=== PATIENT | male | born 1970 | race Caucasian/White ===

== ENCOUNTER 2024-12-04 19:14 | Emergency (ER) | payer OTHER, SELFPAY ==
--- OUTSIDE RECORDS SUMMARY | 2024-10-25 03:57 | XMS_ITS ---
Author Organization 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 Faxed to Dr. Cancino in [place]. Referral Priority Routine REASON FOR VISIT Lab(s) Medications Medication SIG (Take, Route, Frequency, Duration) Notes Start Date End Date Status Fenofibrate 160 MG Tablet 1 tablet Orall y Once a day; Duration: 30 days Active Social History Sex Assigned At : Social History Observation Description Sex Assigned At Male Problems Problem Type SNOMED Code ICD Code Onset Dates Problem Status W/U Status Risk Notes Problem Hypertriglyceridemia (995587075) Hypertriglyceridemia (E78.1) Active confirmed Encounters Encounter Location Date Provider Diagnosis [facility] [address] [place] [address] 10/25/2024 Loreta Isabel Type 2 diabetes oliver itus without complication, without long-term current use of insulin E11.9 and Hypertriglyceridemia E78.1 Assessments Encounter Date Diagnosis (ICD Code) Assessment Notes Treatment Notes Treatment Clinical Notes Section Notes 10/25/2024 Type 2 diabetes oliver itus without complication, without long-term current use of insulin (ICD-10 - E11.9) 10/25/2024 Hypertriglyceridemia (ICD-10 - E78.1) Plan Of Treatment Medication Medication Name Sig Start Date Stop Date Notes Fenofibrate 160 MG Tablet 1 tablet Orall y Once a day; Duration: 30 days Referrals Referral Date Details 10/25/2024 10/25/2024, Hypertri glyceridemia -very high cholesterol/triglycerides, Hugh Cancino Next Appt Details Provider Name:Loreta Cardenas Morales , 01/17/2025 10:00:00 AM, [address] [place], [address], Consultation Request Notes Referral Date Referring Provider Referred Provider Not es 10/25/2024 Loreta Isabel, Hugh Hypertriglyc eridemia -very high cholesterol/triglycerides Progress Notes * Daren HAMILTONDOB:1970 (54 yo M)Acc No.[id number]:10/25/2024 Patient: Daren LARRY :1970 A ge:54 Y S ex:Male Phone: Address:[address] [place] [address], [place] [address] * Refills Refill Fenofibrate Tablet, 160 MG, Orally, 30 Tablet, 1 tablet, Once a day, 30 days, Refills=3 Subjective: * Chief Complaints: * L ab(s) * Medical History: * Surgical History: * Hospitalization/Major Diagno stic Procedure: * Medications: Objective: * Vitals: * Physical Examination: Assessment: * Assessment: 1. T ype 2 diabetes mellitus without complication, without long-term current use of insulin - E11.9 2 . H ypertriglyceridemia - E78.1 Plan: * Treatment: 2. H ypertriglyceridemia Referral To:Cardiology Reason:Hypertriglyceridemia -very high cholesterol/triglycerides * Procedure Codes: * true * Date: Generated for Brianai ng/Faraúlg/eTransmitting on: 0 12/04/2024 09:29 PM EDT
[2024-12-04 19:28] VITALS: BP 153/84; PULSE 107; RESP 18; TEMP 36.6; O2SAT 96; BMI 46.1
--- OUTSIDE RECORDS SUMMARY | 2024-12-04 20:30 | XMS_ITS | Patient Health Record ---
Author Organization [facility] Address [address] [place] [address] Care Team Providers Care Hot Roller Name Role Phone Loreta Isabel Primary Care Provider Elizabeth, Primitivo Unavailable [phone] Shara Gupta Unavailable [phone] Allergies Allergen (clinical drug ingredient) Drug/Non Drug Allergy documented on EMR Reaction Allergy Type Onset Date Status Penicillin rash Drug Allergy Active Results Component Value Reference Range Flag Notes Hgb A1c with MBG Estimation Reviewed date:07/16/2024 10:41:20 AM Interpretation:9.9 Performing Lab: Notes/Report: 9.9 Hemoglobin A1c 9.9 Mean Bld Glu Estim. 237 Hgb A1c with MBG Estimation Reviewed date:10/15/2024 10:18:03 AM Interpretation:10.5 Performing Lab: Notes/Report: 10.5 Hemoglobin A1c 10.5 Mean Bld Glu Estim. 255 Hgb A1c with MBG Estimation Reviewed date:04/16/2024 11:14:06 AM Interpretation:10.1 Performing Lab: Notes/Report: 10.1 Hemoglobin A1c 10.1 Mean Bld Glu Estim. 243 *MRSA Culture/Susceptibility Reviewed date:04/17/2024 03:18:45 PM Interpretation:Negative Performing Lab:[facility], [address] [place] [address], Phone - [phone], Director - Ian Notes/Report: MRSA Screening Culture Negative *CBC With Differential/Plate let Reviewed date:10/26/2024 09:43:27 AM Interpretation:Abnormal Performing Lab:[facility], [address] [place] [address], Phone - [phone], Director - MDWillard Notes/Report: WBC 7.1 3.4-10.8 x10E3/uL RBC 5.14 4.14-5.80 x10E6/uL Hemoglobin 14.1 13.0-17.7 g/dL Hematocrit 46.1 37.5-51.0 % MCV 90 79-97 fL MCH 27.4 26.6-33.0 pg MCHC 30.6 31.5-35.7 g/dL L RDW 16.0 11.6-15.4 % H Platelets 295 150-450 x10E3/uL Neutrophils 70 Not Estab. % Lymphs 19 Not Estab. % Monocytes 7 Not Estab. % Eos 3 Not Estab. % Basos 1 Not Estab. % Neutrophils (Absolute) 5.0 1.4-7.0 x10E3/uL Lymphs (Absolute) 1.3 0.7-3.1 x10E3/uL Monocytes(Absolute) 0.5 0.1-0.9 x10E3/uL Eos (Absolute) 0.2 0.0-0.4 x10E3/uL Baso (Absolute) 0.0 0.0-0.2 x10E3/uL Immature Granulocytes 0 Not Estab. % Immature Grans (Abs) 0.0 0.0-0.1 x10E3/uL *Anaerobic and Aerobic Cultu re Reviewed date:01/18/2024 01:11:27 PM Interpretation: Performing Lab:[facility], [address] [place] [address], Phone - [phone], Director - Ian Notes/Report: Anaerobic Culture Final report Aerobic Culture Final report A Result 1 No anaerobes recovered. Result 1 Methicillin - resistant Staphylococcus aureus A Based on resistance to oxacillin this isolate would be resistant to all currently available beta-lactam antimicrobial agents, with the exception of the newer cephalosporins with anti-MRSA activity, such as Ceftaroline Heavy growth Result 2 Beta hemolytic Streptococcus, group B A Heavy growth Penicillin and ampicillin are drugs of choice for treatment of beta-hemolytic streptococcal infections. Susceptibility testing of penicillins and other beta-lactam agents approved by the FDA for treatment of beta-hemolytic streptococcal infections need not be performed routinely because nonsusceptible isolates are extremely rare in any beta-hemolytic streptococcus and have not been reported for Streptococcus pyogenes (group A). (CLSI) Result 3 Pseudomonas fluorescens A Moderate growth Result 4 Not applicable Antimicrobial Susceptibility S = Susceptible; I = Intermediate; R = Resistant P = Positive; N = Negative MICS are expressed in micrograms per mL Antibiotic RSLT#1 RSLT#2 RSLT#3 RSLT#4 Amikacin S<=2 Cefepime S =2 Cefotaxime I =32 Ceftazidime S =4 Ceftriaxone I =16 Ciprofloxacin S<=0.5 S<=0.25 Clindamycin S<=0.25 Erythromycin S<=0.25 Gentamicin S<=0.5 S<=1 Imipenem S<=1 Levofloxacin S =0.25 Linezolid S =2 Oxacillin R>=4 Penicillin R>=0.5 Piperacillin S =16 Rifampin S<=0.5 Tetracycline S<=1 S =4 Ticarcillin R>=128 Tobramycin S<=1 Trimethoprim/Sulfa S<=10 Vancomycin S<=0.5 *Testosterone,Free and Total Reviewed date:04/18/2024 03:29:47 PM Interpretation:Abnormal [facility]forming [facility], [address] [place] [address], Phone - [phone], Director - Ian Notes/Report: Testosterone 106 264-916 ng/dL L Adult male reference interval is based on a population of healthy nonobese males (BMI <30) between 19 and 39 years old. Bia, et.al. JCEM 2017,102;7035-3771. PMID: 47190531. Free Testosterone(Direct) 4.4 7.2-24.0 pg/mL L *Microalb/Creat Ratio, Rando m Urine Reviewed date:10/26/2024 09:43:27 AM Interpretation:Normal Performing Lab:[facility], [address] [place] [address], Phone - [phone], Director - Ian Notes/Report: Creatinine, Urine 156.1 Not Estab. mg/dL Albumin, Urine 21.6 Not Estab. ug/mL Alb/Creat Ratio 14 0-29 mg/g creat Normal: 0 - 29 Moderately increased: 30 - 300 Severely increased: >300 *TSH+Free T4 Reviewed date:10/26/2024 09:43:27 AM Interpretation:Normal Performing Lab:[facility], [facility], Phone - [phone], Director - Ian Notes/Report: TSH 0.686 0.450-4.500 uIU/mL T4,Free(Direct) 1.17 0.82-1.77 ng/dL *Lipid Panel Reviewed date:10/26/2024 09:43:27 AM Interpretation:Abnormal Performing Lab:[facility], [address] [facility], Phone - [phone], Director - Ian Notes/Report: Cholesterol, Total 230 100-199 mg/dL H Triglycerides 991 0-149 mg/dL HH Results confirmed on dilution. HDL Cholesterol 23 >39 mg/dL L VLDL Cholesterol Marvin The calculation for the VLDL cholesterol is not valid when 5-40 mg/dL A triglyceride level i s >800 mg/dL. LDL Chol Calc ([facility]) Triglyceride result indicated is too high for an accurate LDL 0-99 mg/dL A cholesterol estimation. LDL Calc Comment: In the absence of th e LDL-c value, if the Total Cholesterol (TC) is >260 mg/dL for those <16 years old or >290 for those >/=16 years old, consider evaluating for Familial Hypercholesterolemia( FH) if clinically indicated. If the TC is below these limits, the probability of FH cannot be determined. *Comp. Metabolic Panel (14) Reviewed date:10/26/2024 09:43:27 AM Interpretation:Normal Performing Lab:[facility], [address] [facility], Phone - [phone], Director - Ian Notes/Report: Glucose 351 70-99 mg/dL H BUN 18 6-24 mg/dL Creatinine 0.79 0.76-1.27 mg/dL eGFR 107 >59 mL/min/1.73 BUN/Creatinine Ratio 23 9-20 H Sodium 133 134-144 mmol/L L Potassium 4.2 3.5-5.2 mmol/L Chloride 95 96-106 mmol/L L Carbon Dioxide, Total 21 20-29 mmol/L Calcium 9.3 8.7-10.2 mg/dL Protein, Total 7.4 6.0-8.5 g/dL Albumin 4.2 3.8-4.9 g/dL Globulin, Total 3.2 1.5-4.5 g/dL Bilirubin, Total 0.3 0.0-1.2 mg/dL Alkaline Phosphatase 139 44-121 IU/L H AST (SGOT) 22 0-40 IU/L ALT (SGPT) 38 0-44 IU/L Venous Doppler Study (Lower Left)(90659) Reviewed date:01/18/2024 01:11:27 PM Interpretation:Normal Performing Lab: Notes/Report: Normal Blood Sugar Reviewed date:03/30/2024 11:15:26 AM Interpretation:260 Performing Lab: Notes/Report: 260 Blood Sugar 260 Blood Sugar Reviewed date:02/02/2024 02:36:32 PM Interpretation:High Performing Lab: Notes/Report: High Blood Sugar 372 Diabetic foot exam Reviewed date:10/16/2024 01:59:46 PM Interpretation: Performing Lab: Notes/Report: Reason For Referral Reason Hypertriglyceridemia -very high cholesterol/triglycerides Diagnosis 1 Hypertriglyceridemia (E78.1) Referral Organization [facility] Referring Provider First Name Loreta Referring Provider Last Name [facility] Referring Provider Speciality Physician Lamp Mechanic Referred Provider Hugh Cancino Referred Provider Specialty Cardiology General Notes Maryana Sharma 0 10/30/2024 09:38:51 AM >Pt is self pay and would need to apply for indigent care. Faxed to Dr. Cancino in [place]. Referral Priority Routine Medications Medication SIG (Take, Route, Frequency, Duration) Notes Start Date End Date Status Doxycycline Hyclate 100 MG Capsule 1 capsule Orally twice a day; Duration: 10 days 07/16/2024 Not-Kaylah g Potassium Chloride Selam ER 20 MEQ Tablet Extended Release 1 tablet with food Oral Once a day; Duration: 30 days Active traZODone HCl 50 MG Tablet 1 tablet at bedtime as needed Orally Once a day; Duration: 30 days 10/15/2024 Active Fenofibrate 160 MG Tablet 1 tablet Orally Once a day; Duration: 30 days Active Testosterone Cypionate 200 MG/ML Solution 1 mL Intramuscular every two weeks; Duration: 30 days 04/18/2024 Active Denies taking over the counter and herbal meds. Act maryellen Ozempic (2 MG/DOSE) 8 MG/3ML Solution Pen-injector 2 milligrams Subcutaneous once a week; Duration: 30 days Active Sildenafil Citrate 25 MG Tablet 1 tablet as needed Orally Once a day; Duration: 30 days Active Sulfamethoxazole-Trimeth oprim 800-160 MG Tablet 1 tablet Orally twice a day; Duration: 10 days 10/15/2024 Active Actos 45 MG Tablet 1 tablet Orally Once a day; Duration: 30 days Active Escitalopram Oxalate 10 MG Tablet 1 tablet Orally Once a day; Duration: 30 days Active Lasix 40 MG Tablet 1 tablet Orally Once a day; Duration: 30 days Active Lisinopril 20 MG Tablet 1 tablet Orally Once a day; Duration: 30 days Active Januvia 100 MG Tablet 1 tablet Orally On ce a day; Duration: 30 days Active glipiZIDE ER 10 MG Tablet Extended Release 24 Hour 1 tablet with breakfast Orally twice a day; Duration: 30 days Active Social History Tobacco Use: Social History Observation Description Date Details (start date - stop date) Former Smoker NA - NA Sex Assigned At : Social History Observation Description Sex Assigned At Male Social History Social History Social Info Question Answer Notes Tobacco Use: Are you a smoker? Status: former smoker Date questioned 10/15/2024 Are you an other tobacco user? No Date questioned 10/15/2024 Problems Problem Type SNOMED Code ICD Code Onset Dates Problem Status W/U Status Risk Notes Problem Morbid obesity (896563042) Morbid obesity due to excess calories (E66.01) 2023 Active confirmed Problem Body mass index 40+ - morbidly obese (963099785) Body mass index [BMI] 50.0-59.9, adult (Z68.43) 2023 Active confirmed Problem Mixed anxiety and depressive disorder (294520766) Depression with anxiety (F41.8) Active confirmed Problem Hypertriglyceridemia (588380115) Hypertriglyceridemia (E78.1) Active confirmed Problem Essential hypertension (39348424) Essential hypertension (I10) Active confirmed Problem Lymphedema (49131323) Lymphedema (I89.0) Active confirmed Problem Methicillin resistan t Staphylococcus aureus (764190053) MRSA (methicillin resistant Staphylococcus aureus) (A49.02) Active confirmed Problem Insomnia (878739928) Other insom jorge (G47.09) Active confirmed Problem Dribbling of urine (46370911) Post-void dribbling (N39.43) Active confirmed Problem Erectile dysfunction (disorder) (940079518) Erectile dysfunction, unspecified erectile dysfunction type (N52.9) Active confirmed Problem Hyperglycemia due to type 2 diabetes mellitus (380982221853864) Type 2 diabetes mellitus with hyperglycemia, without long-term current use of insulin (E11.65) Active confirmed Problem Type II diabetes mellitus without complication (237960398) Type 2 diabetes mellitus without complication, without long-term current use of insulin (E11.9) Active confirmed Vital Signs Heart Rate 104 /min 10/15/2024 Temperature 98.0 degrees Fahrenheit 10/15/2024 Respiratory Rate 18 /min 10/15/2024 Height-cm 182.88 cm 10/15/2024 Blood pressure diastolic 86 mm Hg 10/15/2024 Oximetry 94 10/15/2024 Weight-kg 173.73 kg 10/15/2024 Height 72 in 10/15/2024 Blood pressure systolic 118 mm Hg 10/15/2024 Weight 383 lbs 10/15/2024 BMI 51.94 10/15/2024 Procedures Procedure Date Ordered Date Performed Result Body Sit e SBIRT / CAGE 10/15/2024 10/15/2024 Negative Encounters Encounter Location Date Provider Diagnosis [address] [address] 12/29/2023 Loreta Isabel Dietary counseling a nd surveillance Z71.3 ; Cellulitis of left lower extremity L03.116 ; Other specified counseling Z71.89 ; Encounter for other general counseling and advice on contraception Z30.09 ; Morbid obesity due to excess calories E66.01 ; Edema of left lower leg R60.0 ; Body mass index [BMI] 50.0-59.9, adult Z68.43 ; Depression screening Z13.31 and Dietary counseling Z71.[address] [address] 01/12/2024 Shara Gupta Encounter for other general counseling and advice on contraception Z30.09 ; MRSA (methicillin resistant Staphylococcus aureus) A49.02 ; Dietary counseling Z71.3 ; Other specified counseling Z71.89 ; Morbid obesity due to excess calories E66.01 ; Body mass index [BMI] 50.0-59.9, adult Z68.43 ; Depression screening Z13.31 ; Lymphedema I89.0 ; Cellulitis of right lower limb L03.115 ; Cellulitis of left lower limb L03.116 ; Group B streptococcal infection A49.1 and Dietary counseling and surveillance Z71.[address] [address] 01/18/2024 Shara Gupta Encounter for other general counseling and advice on contraception Z30.09 ; Type 2 diabetes mellitus without complication, without long-term current use of insulin E11.9 ; Dietary counseling and surveillance Z71.3 ; Other specified counseling Z71.89 ; Dietary counseling Z71.3 ; Morbid obesity due to excess calories E66.01 ; Body mass index [BMI] 50.0-59.9, adult Z68.43 ; MRSA (methicillin resistant Staphylococcus aureus) A49.02 ; Depression screening Z13.31 ; Post-void dribbling N39.43 and Essential hypertension I10 [address] [address] 02/02/2024 Loreta Isabel Dietary counseling Z 71.3 ; Weakness R53.1 ; Other specified counseling Z71.89 ; Encounter for other general counseling and advice on contraception Z30.09 ; Morbid obesity due to excess calories E66.01 ; Body mass index [BMI] 50.0-59.9, adult Z68.43 ; Depression screening Z13.31 and Essential hypertension I10 [facility] [address] [place] [address] 02/13/2024 Loreta Isabel Dietary counseling Z 71.3 ; Other specified counseling Z71.89 ; Encounter for other general counseling and advice on contraception Z30.09 ; Obesity, Class 3, BMI 40.0 or higher E66.813 ; Body mass index [BMI] 50.0-59.9, adult Z68.43 ; Depression screening Z13.31 ; Type 2 diabetes mellitus without complication, without long-term current use of insulin E11.9 ; Essential hypertension I10 and Hospital discharge follow-up Z09 [address] [address] 03/30/2024 Primitivo Johnson Dietary counseling Z 71.3 ; MRSA (methicillin resistant Staphylococcus aureus) A49.02 ; Other specified counseling Z71.89 ; Type 2 diabetes mellitus with hyperglycemia, without long-term current use of insulin E11.65 ; Body mass index [BMI] 50.0-59.9, adult Z68.43 and Obesity, Class 3, BMI 40.0 or higher E66.813 [facility] [address] [place] [address] 04/16/2024 [facility] Encounter for other general counseling and advice on contraception Z30.09 ; Dietary counseling Z71.3 ; Other specified counseling Z71.89 ; Depression screening Z13.31 ; Body mass index [BMI] 50.0-59.9, adult Z68.43 ; Obesity, Class 3, BMI 40.0 or higher E66.813 ; Type 2 diabetes mellitus without complication, without long-term current use of insulin E11.9 ; Essential hypertension I10 ; Other chest pain R07.89 ; MRSA (methicillin resistant Staphylococcus aureus) A49.02 ; Type 2 diabetes mellitus with hyperglycemia, without long-term current use of insulin E11.65 and Erectile dysfunction, unspecified erectile dysfunction type N52.9 [facility] [address] [place] [address] 04/16/2024 [facility] Dietary counseling a nd surveillance Z71.3 and Other specified counseling Z71.89 [facility] [address] [place] [address] 04/25/2024 [facility] Erectile dysfunction , unspecified erectile dysfunction type N52.9 [facility] [address] [place] [address] 05/09/2024 [facility] Erectile dysfunction , unspecified erectile dysfunction type N52.9 [facility] [address] [place] [address] 05/23/2024 [facility] Erectile dysfunction , unspecified erectile dysfunction type N52.9 [facility] [address] [place] [address] 06/06/2024 [facility] Erectile dysfunction , unspecified erectile dysfunction type N52.9 [facility] [address] [place] [address] 07/16/2024 [facility] control counse ling Z30.09 ; Type 2 diabetes mellitus with hyperglycemia, without long-term current use of insulin E11.65 ; Dietary counseling and surveillance Z71.3 ; Other specified counseling Z71.89 ; Body mass index [BMI] 50.0-59.9, adult Z68.43 ; Obesity, Class 3, BMI 40.0 or higher E66.813 ; Depression screening Z13.31 ; Depression with anxiety F41.8 ; Type 2 diabetes mellitus without complication, without long-term current use of insulin E11.9 ; Essential hypertension I10 ; Erectile dysfunction, unspecified erectile dysfunction type N52.9 and Cellulitis of other specified site L03.[address] [address] 10/15/2024 [facility] control counse ling Z30.09 ; Type 2 diabetes mellitus with hyperglycemia, without long-term current use of insulin E11.65 ; Dietary counseling and surveillance Z71.3 ; Other specified counseling Z71.89 ; Depression screening Z13.31 ; Body mass index [BMI] 50.0-59.9, adult Z68.43 ; Obesity, Class 3, BMI 40.0 or higher E66.813 ; Depression with anxiety F41.8 ; Type 2 diabetes mellitus without complication, without long-term current use of insulin E11.9 ; Essential hypertension I10 ; Erectile dysfunction, unspecified erectile dysfunction type N52.9 ; Cellulitis of other specified site L03.818 and Other insomnia G47.[address] [address] 10/15/2024 [facility] Academic underachiev ement Z55.3 and Food insecurity Z59.[address] [address] 12/16/2023 [facility] Type 2 diabetes loiver itus without complication, without long-term current use of insulin E11.[address] [address] 06/25/2024 [facility] MRSA (methicillin re sistant Staphylococcus aureus) A49.[address] [address] 12/28/[address] [address] 04/18/2024 [facility] [address] [place] [address] 06/26/2024 [facility] [address] [place] [address] 10/25/2024 [facility] Type 2 diabetes oliver itus without complication, without long-term current use of insulin E11.9 and Hypertriglyceridemia E78.1 [facility] [address] [place] [address] 10/26/2024 [facility] Assessments Encounter Date Diagnosis (ICD Code) Assessment Notes Treatment Notes Treatment Clinical Notes Section Notes 12/29/2023 Dietary counseling a nd surveillance (ICD-10 - Z71.3) Encouraged patient to adhere to a nutrient rich, well-balanced diet rich in grilled lean meats, fruits/veggies, whole grains, low fat dairy; avoid refined sugars, saturated and trans fats, processed/packaged foods 12/29/2023 Cellulitis of left lower extremity (ICD-10 - L03.116) Start medication as prescribed. Areobic and Anareobic culture ordered. 10/15/2024 Academic underachievement (ICD-10 - Z55.3) 03/30/2024 Dietary counseling (ICD-10 - Z71.3) 03/30/2024 MRSA (methicillin resistant Staphylococcus aureus) (ICD-10 - A49.02) 01/12/2024 MRSA (methicillin resistant Staphylococcus aureus) (ICD-10 - A49.02) 01/12/2024 Encounter for other general counseling and advice on contraception (ICD-10 - Z30.09) 10/25/2024 Type 2 diabetes mellitus without complication, without long-term current use of insulin (ICD-10 - E11.9) 10/15/2024 control counseling (ICD-10 - Z30.09) 10/15/2024 Type 2 diabetes mellitus with hyperglycemia, without long-term current use of insulin (ICD-10 - E11.65) HgA1C = 10.5 Abnormal foot exam, consider Podiatry referral in the future, patient will work on getting his HgA1C down, admits to being out of the Ozempic and not taking his medication regularly 07/16/2024 Type 2 diabetes mellitus with hyperglycemia, without long-term current use of insulin (ICD-10 - E11.65) HgA1C = 9.9 decreased from last visit of 10.1 07/16/2024 control counseling (ICD-10 - Z30.09) 06/06/2024 Erectile dysfunction , unspecified erectile dysfunction type (ICD-10 - N52.9) 04/16/2024 Dietary counseling a nd surveillance (ICD-10 - Z71.3) 02/13/2024 Dietary counseling (ICD-10 - Z71.3) Encouraged patient to adhere to a nutrient rich, well-balanced diet rich in grilled lean meats, fruits/veggies, whole grains, low fat dairy; avoid refined sugars, saturated and trans fats, processed/packaged foods 01/18/2024 Encounter for other general counseling and advice on contraception (ICD-10 - Z30.09) 12/16/2023 Type 2 diabetes mellitus without complication, without long-term current use of insulin (ICD-10 - E11.9) 01/18/2024 Type 2 diabetes mellitus without complication, without long-term current use of insulin (ICD-10 - E11.9) Emphasized the importance of consistent medication adherence for proper wound healing and overall health. Adjusted diabetes medications. Discontinue Rybelsus and glipizide and initiated Ozempic. Provided a sample for him to try. Discussed medication desired effects, potential side effects, and how to administer the medication. Nonpharmacological interventions such as low carb diet, high in vegetables and fruit discussed. Educated on importance of physical activity. Regarding urinary symptoms, focus on improving blood sugar control and weight loss, which may help resolve these issues. Can ordered PSA to check prostate levels. Trial of Flomax prescribed. He will follow-up in 4 weeks to assess medication efficacy. Return to the office sooner if needed. He is in agreement with POC and all questions answered. 06/25/2024 MRSA (methicillin resistant Staphylococcus aureus) (ICD-10 - A49.02) 05/23/2024 Erectile dysfunction , unspecified erectile dysfunction type (ICD-10 - N52.9) 05/09/2024 Erectile dysfunction , unspecified erectile dysfunction type (ICD-10 - N52.9) 04/25/2024 Erectile dysfunction , unspecified erectile dysfunction type (ICD-10 - N52.9) 04/16/2024 Encounter for other general counseling and advice on contraception (ICD-10 - Z30.09) 02/02/2024 Dietary counseling (ICD-10 - Z71.3) Healthy diet recommended 02/02/2024 Weakness (ICD-10 - R53.1) Blood glucose 374 in the office today, patient is unable to give UA. Endorses taking Rybelsus and Ozempic simultaneously a few times. Advised patient that this medication is in the same class and I had advised him in the past that he should not be taken these medications together. Patient states he will only take the Ozempic from here on out. Based off patient's presentation elevated blood pressure and weakness advised patient to go to the ER. I did offer calling the ambulance, patient refused this service. He states he will go to the ER via private vehicle. I did call and give report to the nurse at [facility] in the ER and advised that patient would be coming to their facility. Patient was unable to give a UA to see if he was in DKA. Due to the need of urgent labs patient will proceed to the ER for additional testing based off symptoms of weakness today. 02/02/2024 Other specified counseling (ICD-10 - Z71.89) 04/16/2024 Dietary counseling (ICD-10 - Z71.3) Encouraged patient to adhere to a nutrient rich, well-balanced diet rich in grilled lean meats, fruits/veggies, whole grains, low fat dairy; avoid refined sugars, saturated and trans fats, processed/packaged foods 01/18/2024 Dietary counseling a nd surveillance (ICD-10 - Z71.3) 02/13/2024 Other specified counseling (ICD-10 - Z71.89) 04/16/2024 Other specified counseling (ICD-10 - Z71.89) 07/16/2024 Dietary counseling a nd surveillance (ICD-10 - Z71.3) 10/15/2024 Dietary counseling a nd surveillance (ICD-10 - Z71.3) Healthy diet recommended 10/25/2024 Hypertriglyceridemia (ICD-10 - E78.1) 01/12/2024 Dietary counseling (ICD-10 - Z71.3) 03/30/2024 Other specified counseling (ICD-10 - Z71.89) 10/15/2024 Food insecurity (ICD-10 - Z59.41) 12/29/2023 Other specified counseling (ICD-10 - Z71.89) 12/29/2023 Encounter for other general counseling and advice on contraception (ICD-10 - Z30.09) 03/30/2024 Type 2 diabetes mellitus with hyperglycemia, without long-term current use of insulin (ICD-10 - E11.65) 01/12/2024 Other specified counseling (ICD-10 - Z71.89) 10/15/2024 Other specified counseling (ICD-10 - Z71.89) 07/16/2024 Other specified counseling (ICD-10 - Z71.89) 02/13/2024 Encounter for other general counseling and advice on contraception (ICD-10 - Z30.09) 01/18/2024 Other specified counseling (ICD-10 - Z71.89) 04/16/2024 Other specified counseling (ICD-10 - Z71.89) 02/02/2024 Encounter for other general counseling and advice on contraception (ICD-10 - Z30.09) 02/02/2024 Morbid obesity due t o excess calories (ICD-10 - E66.01) 04/16/2024 Depression screening (ICD-10 - Z13.31) 02/13/2024 Obesity, Class 3, BM I 40.0 or higher (ICD-10 - E66.813) 01/18/2024 Dietary counseling (ICD-10 - Z71.3) 07/16/2024 Body mass index [BMI ] 50.0-59.9, adult (ICD-10 - Z68.43) 10/15/2024 Depression screening (ICD-10 - Z13.31) 01/12/2024 Morbid obesity due t o excess calories (ICD-10 - E66.01) 03/30/2024 Body mass index [BMI ] 50.0-59.9, adult (ICD-10 - Z68.43) 12/29/2023 Morbid obesity due t o excess calories (ICD-10 - E66.01) 12/29/2023 Edema of left lower leg (ICD-10 - R60.0) STAT Doppler US ordered of the left lower extremity 03/30/2024 Obesity, Class 3, BM I 40.0 or higher (ICD-10 - E66.813) 10/15/2024 Body mass index [BMI ] 50.0-59.9, adult (ICD-10 - Z68.43) 01/12/2024 Body mass index [BMI ] 50.0-59.9, adult (ICD-10 - Z68.43) 07/16/2024 Obesity, Class 3, BM I 40.0 or higher (ICD-10 - E66.813) 01/18/2024 Morbid obesity due t o excess calories (ICD-10 - E66.01) 02/13/2024 Body mass index [BMI ] 50.0-59.9, adult (ICD-10 - Z68.43) 04/16/2024 Body mass index [BMI ] 50.0-59.9, adult (ICD-10 - Z68.43) 02/02/2024 Body mass index [BMI ] 50.0-59.9, adult (ICD-10 - Z68.43) 02/02/2024 Depression screening (ICD-10 - Z13.31) 04/16/2024 Obesity, Class 3, BM I 40.0 or higher (ICD-10 - E66.813) 02/13/2024 Depression screening (ICD-10 - Z13.31) 01/18/2024 Body mass index [BMI ] 50.0-59.9, adult (ICD-10 - Z68.43) 07/16/2024 Depression screening (ICD-10 - Z13.31) 01/12/2024 Depression screening (ICD-10 - Z13.31) 10/15/2024 Obesity, Class 3, BM I 40.0 or higher (ICD-10 - E66.813) 12/29/2023 Body mass index [BMI ] 50.0-59.9, adult (ICD-10 - Z68.43) 12/29/2023 Depression screening (ICD-10 - Z13.31) 07/16/2024 Depression with anxiety (ICD-10 - F41.8) 01/12/2024 Lymphedema (ICD-10 - I89.0) 10/15/2024 Depression with anxiety (ICD-10 - F41.8) 04/16/2024 Essential hypertensi on (ICD-10 - I10) Low sodium diet recommended 02/13/2024 Type 2 diabetes mellitus without complication, without long-term current use of insulin (ICD-10 - E11.9) 02/13/2024 Essential hypertensi on (ICD-10 - I10) Low sodium diet recommended 01/18/2024 MRSA (methicillin resistant Staphylococcus aureus) (ICD-10 - A49.02) Encouraged the patient to finish the remaining Cipro and continue using the ointment twice a day. If improvement is not noted after the course of antibiotics and improved glycemic control, will send referral to wound therapy. 02/02/2024 Essential hypertensi on (ICD-10 - I10) Advised to go to the ER 04/16/2024 Type 2 diabetes mellitus without complication, without long-term current use of insulin (ICD-10 - E11.9) HgA1C = 10.1 04/16/2024 Other chest pain (ICD-10 - R07.89) Patient would like to wait on a Cardiology referral for now. 02/13/2024 Hospital discharge follow-up (ICD-10 - Z09) Hospital records reviewed but the print was not legible 01/18/2024 Depression screening (ICD-10 - Z13.31) 07/16/2024 Type 2 diabetes mellitus without complication, without long-term current use of insulin (ICD-10 - E11.9) 10/15/2024 Type 2 diabetes mellitus without complication, without long-term current use of insulin (ICD-10 - E11.9) 01/12/2024 Cellulitis of right lower limb (ICD-10 - L03.115) 12/29/2023 Dietary counseling (ICD-10 - Z71.3) Healthy diet recommended 01/12/2024 Cellulitis of left lower limb (ICD-10 - L03.116) 07/16/2024 Essential hypertensi on (ICD-10 - I10) 10/15/2024 Essential hypertensi on (ICD-10 - I10) Low sodium diet recommended 04/16/2024 MRSA (methicillin resistant Staphylococcus aureus) (ICD-10 - A49.02) Continue Bactrim and Clindamycin. Follow up in 2-3 weeks if symptoms are not resolved will consider wound care if needed. 01/18/2024 Post-void dribbling (ICD-10 - N39.43) 04/16/2024 Type 2 diabetes mellitus with hyperglycemia, without long-term current use of insulin (ICD-10 - E11.65) 01/18/2024 Essential hypertensi on (ICD-10 - I10) 01/12/2024 Group B streptococca l infection (ICD-10 - A49.1) 10/15/2024 Erectile dysfunction , unspecified erectile dysfunction type (ICD-10 - N52.9) 07/16/2024 Erectile dysfunction , unspecified erectile dysfunction type (ICD-10 - N52.9) 07/16/2024 Cellulitis of other specified site (ICD-10 - L03.818) 10/15/2024 Cellulitis of other specified site (ICD-10 - L03.818) 04/16/2024 Erectile dysfunction , unspecified erectile dysfunction type (ICD-10 - N52.9) 10/15/2024 Other insomnia (ICD- 10 - G47.09) 01/12/2024 Dietary counseling a nd surveillance (ICD-10 - Z71.3) 01/12/2024 Other Start Ciprofloxacin 500 mg BID as it is the most likely to treat the infection based on culture results. Bactroban ointment also prescribed with Hibaclens to be used twice daily. Reevaluate at follow-up appointment in one week. If infection appears to worsen or fever occurs, go to local ER for IV antibiotics. Schedule an appointment with the orthopedic surgeon to assess the need for further intervention of (R) shoulder. Begin physical therapy on February 01 if approved. 01/18/2024 Other Encouraged him to discuss depressive symptoms with a mental health professional if needed. Focus on improving blood sugar control, weight loss, and overall health, which may help alleviate some of his stress and improve sleep quality. 03/30/2024 Other Suspect acute M RSA, treat with oral antibiotics for 2 weeks. Advised the need for improved glycemic control. He will discuss discontinuation of DPP-4 therapy as he is currently taking GLP-1 therapy as they act at incretin system. He would better suited for treatment with SGLT-2 therapy. 04/16/2024 Other Increased Ozemp ic to 1 mg once weekly, continue all other medications as prescribed, increase glipizide to 10 mg extended release twice daily. Discussed signs of hypoglycemic events. Follow-up in 3 months Plan Of Treatment Next Appt Details Provider Name:Loreta Cardenas Morales , 01/17/2025 10:00:00 AM, [address] [facility], [place], [id number], Medications Administered Medication Instructions Date of Administration Dosage Notes Testosterone (pt brought in) 04/25/2024 1 mL Testosterone (pt brought in) 05/09/2024 200 mg Alan Awad 05/09/2024 04:06:25 PM EST >pt tolerated well Testosterone (pt brought in) 05/23/2024 1 mL Diane Lomeli 05/23/2024 04:44:31 PM EST > Testosterone (pt brought in) 06/06/2024 1 mL Priyank Gutierrez 06/06/2024 03:31:39 PM EST > Medical (General) History Medical History History ICD Code Diabetes Type 2 Hypercholesterolemia Hypertension Surgical History Surgery Date(Month/Year) rotator cuff 12/09/2023 Hospitalization History Reason Date(Month/Year) Chest pain 06/2023
[2024-12-04] MEDS: TETANUS/DIPHTH/PERTUSSIS 0.5 ML SYRINGE IM (20:32)
[2024-12-04] MEDS: BACITRACIN OINTMENT BULK TUBE 1 APPLIC TOPICAL (20:32)
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
== END 2024-12-04 20:54 | disposition home or self-care (01) ==
PROVIDERS: Emergency Provider Family Medicine
DX: T22.211A Burn of second degree of right forearm, initial encounter (principal); L08.9 Local infection of the skin and subcutaneous tissue, unspecified; E11.9 Type 2 diabetes mellitus without complications; X10.1XXA Contact with hot food, initial encounter; Z79.84 Long term (current) use of oral hypoglycemic drugs; Z23 Encounter for immunization
CPT/HCPCS: 90471; 90715; 99283; 99284